=== PATIENT | female | born 1990 | race Caucasian/White ===

== ENCOUNTER 2022-03-20 09:00 | Outpatient (RCR) | payer OTHER, SELFPAY | END 2022-04-02 15:37 | disposition home or self-care (01) | LOC: HO.PT 09:00 | PROVIDERS: Visit Provider Nurse Practitioner Adult Health | DX: N94.2 Vaginismus (principal) | CPT/HCPCS: 97110; 97112; 97140; 97161 ==

== ENCOUNTER 2023-05-18 19:42 | Emergency (ER) | payer OTHER, SELFPAY ==
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
[2023-05-18 19:47] VITALS: BP 124/88; PULSE 80; RESP 14; TEMP 37.2; O2SAT 100; BMI 27.8
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
[2023-05-18] MEDS: Ondansetron ODT 4 MG TAB.RAPDIS TRANSLINGU (22:01)
[2023-05-18] MEDS: Acetaminophen 325 MG TABLET 975 MG PO (22:01)
[2023-05-18 22:13] VITALS: BP 128/69; PULSE 62; RESP 18; TEMP 36.6; O2SAT 100
== END 2023-05-18 22:50 | disposition home or self-care (01) ==
PROVIDERS: Emergency Provider Emergency Medicine
DX: S06.0XAA Concussion with loss of consciousness status unknown, initial encounter (principal); V43.62XA Car passenger injured in collision with other type car in traffic accident, initial encounter; Y92.410 Unspecified street and highway as the place of occurrence of the external cause; Y93.9 Activity, unspecified; Y99.9 Unspecified external cause status; M54.9 Dorsalgia, unspecified; R51.9 Headache, unspecified; R11.0 Nausea; F12.90 Cannabis use, unspecified, uncomplicated
CPT/HCPCS: 70450; 99284

== ENCOUNTER 2023-05-20 17:18 | Emergency (ER) | payer OTHER, SELFPAY ==
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
[2023-05-20 18:01] VITALS: BP 145/93; PULSE 82; RESP 18; TEMP 36.6; O2SAT 100; BMI 28.1
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
--- NOTE | 2023-05-20 21:46 | PC.NURSE ---
pt already left without discharge papers,
== END 2023-05-20 21:48 | disposition home or self-care (01) ==
PROVIDERS: Emergency Provider Emergency Medicine Emergency Medical Services; PCP Family Medicine
DX: S46.911A Strain of unspecified muscle, fascia and tendon at shoulder and upper arm level, right arm, initial encounter (principal); M79.621 Pain in right upper arm; M25.511 Pain in right shoulder; V53.5XXA Driver of pick-up truck or van injured in collision with car, pick-up truck or van in traffic accident, initial encounter; Y92.410 Unspecified street and highway as the place of occurrence of the external cause; Y99.9 Unspecified external cause status
CPT/HCPCS: 73030; 73080; 73090; 73110; 73130; 99282; 99283